=== PATIENT | male | born 1950 | race Caucasian/White ===

== ENCOUNTER 2017-07-10 08:26 | Outpatient (CLI) | payer OTHER ==
--- NOTE | 2017-07-10 09:31 | CT ---
CONTRAST ENHANCED CT CHEST: Date: 07-10-17 Comparison: 01-10-17 Technique: Contrast enhanced CT of the chest was performed. FINDINGS: Calcification of the aorta is seen. Coronary artery calcifications also seen. There is a small left sided pleural effusion which has developed since the previous exam. There is so me volume loss in the left lung. Area of scarring is seen in the left lower lobe. There is decreased density as far as volume in the superior segment left lower lobe residual opacity. Post therapy scar is present. Tiny pretracheal lymph nodes are seen and appear to be smaller than on the previous exam, dimension measuring approximately 8 mm. No evidence of newly developed masses or lesions seen. IMPRESSION: 1. Slightly increasing left sided pleural effusion. 2. Left lung volume loss. 3. Decreased size of superior segment left lower lobe density. POS: GABY
== END 2017-07-10 08:27 | disposition home or self-care (01) ==
LOC: CT 08:26
PROVIDERS: ATTEND Radiology Radiation Oncology
DX: C34.90 Malignant neoplasm of unspecified part of unspecified bronchus or lung (principal); J90 Pleural effusion, not elsewhere classified; J98.4 Other disorders of lung; Z92.21 Personal history of antineoplastic chemotherapy; Z92.3 Personal history of irradiation
CPT/HCPCS: 71260

== ENCOUNTER 2017-08-28 07:40 | Outpatient (CLI) | payer OTHER ==
[2017-08-28 08:10] LABS: Estimated GFR-MDRD - POC Greater than 90
--- NOTE | 2017-08-28 09:44 | CT ---
CONTRAST ENHANCED CT IMAGES CHEST: History: Patient with lung cancer. FINDINGS: There is an area of right anterior lung pleural plaque calcifications, stable since the previous exam . No significant evidence of right lung parenchymal lesions seen. There is some volume loss in the left lung, fairly central areas of peribronchial soft tissue thickne ss and possible endobronchial scarring is present, unchanged since the previous comparison CT. A smal l left sided pleural effusion is present, decreased slightly in size compared to the previous exam. N o evidence of acute airspace disease is seen. The visualized portions of the liver and spleen are unremarkable. The pancreas is unremarkable. Adren al glands unremarkable. There does appear to be some calcification in the right and left renal arteri es, as well as possible origin left renal artery stent. IMPRESSION: 1. Slightly decreased left sided pleural effusion. 2. Left central pulmonary scar. 3. Coronary artery calcifications. POS: LIVAN
[2017-08-28] MEDS ORDERED: Iopamidol 370 76% 100 ML VIAL ONE (13:55)
== END 2017-08-28 07:41 | disposition home or self-care (01) ==
LOC: CT 07:40
PROVIDERS: ATTEND Radiology Radiation Oncology
DX: C34.90 Malignant neoplasm of unspecified part of unspecified bronchus or lung (principal); J90 Pleural effusion, not elsewhere classified; J98.4 Other disorders of lung; I25.10 Atherosclerotic heart disease of native coronary artery without angina pectoris; Z92.3 Personal history of irradiation
CPT/HCPCS: 71260

== ENCOUNTER 2018-02-20 08:18 | Outpatient (CLI) | payer OTHER ==
[2018-02-20] MEDS ORDERED: Iopamidol 370 76% 100 ML VIAL ONE (09:00)
--- NOTE | 2018-02-20 10:24 | CT ---
CT OF THE CHEST WITH CONTRAST: Date: 02/20/18 COMPARISON: 08/28/17 and 07/10/17. HISTORY: Lung cancer, status post chemotherapy and radiation therapy. TECHNIQUE: Multiple contiguous axial images were obtained in a CT of the chest with contrast. Coronal reformats were performed. FINDINGS: Soft tissue density fullness is again seen in the left hilar region. This is unchanged compared to th e two most recent CTs. There is a minimal left pleural effusion. There is a stable peripheral nodular ity measuring 8.0 mm in size, which may represent an area of scarring. There is calcified pleural plaque in the right thorax. No focal infiltrates are seen. The heart is normal in size. Calcifications are seen in the coronary arteries and aorta. No mediastin al adenopathy is seen. There is a MediPort with its tip in the superior vena cava. The visualized subdiaphragmatic structures are unremarkable. Degenerative changes are seen in the spi ne. The chest wall soft tissues are unremarkable. IMPRESSION: Stable scarring in the left hilar region. POS: LIVAN
== END 2018-02-20 08:19 | disposition home or self-care (01) ==
LOC: SCSCT 08:18
PROVIDERS: ATTEND Radiology Radiation Oncology
DX: C34.92 Malignant neoplasm of unspecified part of left bronchus or lung (principal); J98.4 Other disorders of lung; Z92.21 Personal history of antineoplastic chemotherapy; Z92.3 Personal history of irradiation
CPT/HCPCS: 71260; 82565

== ENCOUNTER 2018-08-02 18:29 | Emergency (ER) | payer OTHER ==
--- NOTE | 2018-08-02 21:57 | ULT ---
TESTICULAR ULTRASOUND 08/02/18 HISTORY: Right testicular swelling. COMPARISON: None. TECHNIQUE: Peterson scale, color flow, doppler imaging with spectral waveform analysis performed in the left and rig ht hemiscrotum. FINDINGS: RIGHT HEMISCROTUM: Right testicle has a normal echotexture measuring 5.0 x 2.8 x 2.8 cm. There is an anechoic focus in t he right epididymis measuring 1.9 x 0.7 x 1.7 cm likely within the epididymal cyst. Cyst occupies the majority of the epididymis. There appears to be a soft tissue echotexture with calcifications that i s somewhat exophytic/adjacent to this right testicle. The significance of this lesion is uncertain, m easuring 0.5 cm. There is a large right sided hydrocele. There is mobile echogenic focus measuring 0. 6 x 0.4 x 0.3 cm. LEFT HEMISCROTUM: Left testicle has a homogeneous echotexture. No intratesticular mass. Left testicle measures 4.3 x 2. 5 x 3.0 cm. Left epididymis has small septations/cysts and measures 0.8 x 0.3 cm. There is a soft tis brandon echotexture that appears to be within left hemiscrotum measuring 0.3 x 0.6 x 0.3 cm. Additional s oft tissue echotexture with calcifications are noted in the right hemiscrotum which measures 1.5 x 0. 9 x 1.6 cm. These lesions are reportedly mobile. There is a complex fluid in the left hemiscrotum. TESTICULAR DOPPLER: There is vascular flow to the left and right testicle. IMPRESSION: 1. Right greater than left hydroceles. 2. Soft tissue echotexture with calcifications that are mobile in the left and right hemiscrotum . Significance of scorotal calcifications is uncertain. Nonemergent urological consultation is recomm ended. 3. There is vascular flow to both testicles. POS: GABY
== END 2018-08-02 21:38 | disposition home or self-care (01) ==
LOC: SCSER 18:29
DX: N43.3 Hydrocele, unspecified (principal); R05 Cough; I10 Essential (primary) hypertension; E78.5 Hyperlipidemia, unspecified; E78.00 Pure hypercholesterolemia, unspecified; Z87.891 Personal history of nicotine dependence; Z79.899 Other long term (current) drug therapy
CPT/HCPCS: 76870; 93976